=== PATIENT | male | born 1955 | race Caucasian/White ===

== ENCOUNTER 2020-04-30 16:56 | Inpatient (IN) | payer OTHER ==
[~2020-04-30] VITALS: Ht 180.3 cm; Wt 84.0 kg
[2020-04-30] MEDS ORDERED: CEFTRIAXONE PMX 2GM/50ML 50 ML ONE (17:51)
[2020-04-30] MEDS ORDERED: CEFTRIAXONE PMX 2GM/50ML 50 ML IVPB SCH ×2 (18:00→21:24)
--- NOTE | 2020-04-30 18:30 | NUR ---
UROLOGIST AT [facility] FLUSING 3 WAY CATHETER AND WHEN PULLING BACK OBTAINING CLOTS. WHEN SALINE CONNECTED TO BLADDER IRRIGATION TUBING, CATHETER NOT DRAINING/FLUSHING. PER UROLOGIST EXISITING CATHETER TO BE REMOVED WITH NEW [address] TO BE PLACED BY THIS RN AND CBI TO BE STARTED.
--- NOTE | 2020-04-30 18:30 | NUR ---
NOTE: 1829 NOTE BY KENISHA, NOT BUZZ ORTIZ
--- NOTE | 2020-04-30 18:42 | NUR ---
NOTE: CATHETER INSERTED BY LINH ORTIZ WITH BUZZ ORTIZ ASSISTING AND WITNESSING.
--- NOTE | 2020-04-30 19:00 | NUR ---
Break RN: assumed are of pt on behalf of primary RN for lunch break only. bladder irrigation running. +adolph bloody output, but no clots seen at this time. pt denies pain.
--- NOTE | 2020-04-30 19:10 | NUR ---
CBI CONTINUES TO BE INFUSING WITH DRAINAGE OF SALINE NOTED FROM BLADDER TO CATHETER. PT COMFORTABLE WITH NO BLADDER FULLNESS SENSATION OR DISTENTION.
--- NOTE | 2020-04-30 19:20 | NUR ---
Break RN: CBI infusing. urology at bedside for eval clean sheets applied
--- NOTE | 2020-04-30 19:37 | NUR ---
REPORT GIVEN TO JACK ORTIZ.
[2020-04-30 20:13] VITALS: BP 115/70
[2020-04-30] MEDS ORDERED: CEFTRIAXONE PMX 1GM/50ML 50 ML IV SCH (21:30)
[2020-04-30] MEDS ORDERED: BISACODYL 10 MG SUPP PR PRN (21:30)
[2020-04-30] MEDS ORDERED: ACETAMINOPHEN 325 MG TABLET PO PRN (21:30)
[2020-04-30] MEDS ORDERED: ONDANSETRON 2MG/ML, 2ML IVPush PRN (21:30)
[2020-04-30] MEDS ORDERED: POLYETHYLENE GLYCOL 17 GM PACKET PO PRN (21:30)
[2020-04-30 21:40] LABS: BASOPHILS % (AUTO) 1 % (0-1); EOSINOPHILS % (AUTO) 1 % (1-7); LYMPHOCYTES % (AUTO) 13 % (22-44); MEAN CORPUSCULAR HEMOGLOBIN 31.8 pg (27.5-34.5); MEAN CORPUSCULAR HGB CONC 34.2 g/dL (33.2-36.2); MONOCYTES % (AUTO) 9 % (2-9); NEUTROPHILS % (AUTO) 77 % (42-75); PLATELET COUNT 171 x10^3/uL (130-400); RED BLOOD COUNT 3.52 x10^6/uL (4.38-5.82)
[2020-04-30 21:44] LABS: MD NO
[2020-04-30 21:45] LABS: ALANINE AMINOTRANSFERASE 15 U/L (12-78); ALBUMIN 3.1 g/dL (3.4-5.0); ANION GAP 3 mmol/L (5-15); CHLORIDE 106 mmol/L (98-107); CREATININE 0.96 mg/dL (0.7-1.3)
[2020-04-30 21:47] LABS: ALKALINE PHOSPHATASE 69 U/L (45-117); TOTAL PROTEIN 5.6 g/dL (6.4-8.2)
[2020-04-30] MEDS: SODIUM CHLORIDE FLUSH 10ML SYR IVF SCH (22:24)
[2020-05-01 00:28] VITALS: BP 102/60
[2020-05-01] MEDS ORDERED: TAMS-11 PO (00:48)
[2020-05-01 08:00] VITALS: BP 117/68
[2020-05-01] MEDS: TAMSULOSIN 0.4 MG CAP.ER.24H PO SCH (09:20)
[2020-05-01] MEDS: SENNA/DOCUSATE TABLET PO SCH (09:20)
[2020-05-01] MEDS: SODIUM CHLORIDE FLUSH 10ML SYR IVF SCH ×2 (09:33→21:00)
[2020-05-01] MEDS: CEFTRIAXONE PMX 1GM/50ML 50 ML IV SCH (09:34)
[2020-05-01] MEDS ORDERED: ACETAMINOPHEN 325 MG TABLET PO PRN ×2 (10:00→18:00)
[2020-05-01 10:03] LABS: BASOPHILS % (AUTO) 1 % (0-1); EOSINOPHILS % (AUTO) 2 % (1-7); LYMPHOCYTES % (AUTO) 15 % (22-44); MEAN CORPUSCULAR HGB CONC 34.4 g/dL (33.2-36.2); MEAN PLATELET VOLUME 10.1 fL (7.4-10.4); MONOCYTES % (AUTO) 8 % (2-9); NEUTROPHILS % (AUTO) 75 % (42-75); PLATELET COUNT 163 x10^3/uL (130-400); RED BLOOD COUNT 3.41 x10^6/uL (4.38-5.82); RED CELL DISTRIBUTION WIDTH 13.4 % (9.4-14.8)
[2020-05-01] MEDS: SODIUM CHLORIDE 0.9% 1,000 ML IV SCH (10:13)
[2020-05-01 10:16] LABS: MD NO
[2020-05-01 14:26] VITALS: BP 113/68
[2020-05-01] MEDS ORDERED: FENTANYL PF 100 MCG/2ML ONE (17:14)
[2020-05-01] MEDS ORDERED: PROMETHAZINE 25 MG/ML, 1ML IVPush PRN (18:00)
[2020-05-01] MEDS ORDERED: OXYcodone 5 MG/5 ML ORAL.SOL UDC PO PRN (18:00)
[2020-05-01] MEDS ORDERED: LABETALOL 5MG/ML, 20ML IV PRN (18:00)
[2020-05-01] MEDS ORDERED: ALBUTEROL SULFATE 2.5 MG/3 ML NPPB PRN (18:00)
[2020-05-01] MEDS ORDERED: HYDROmorphone 1 MG/ML, 1ML INJ IVPush PRN (18:00)
[2020-05-01] MEDS ORDERED: MEPERIDINE/PF 25MG/0.5ML IVPush PRN (18:00)
[2020-05-01] MEDS ORDERED: FENTANYL PF 100 MCG/2ML IV PRN (18:00)
[2020-05-01] MEDS ORDERED: PROPOFOL 10 MG/ML, 20ML ONE (18:05)
[2020-05-01] MEDS ORDERED: DEXAMETHASONE 4 MG/ML, 1ML ONE (18:05)
[2020-05-01] MEDS ORDERED: ONDANSETRON 2MG/ML, 2ML ONE (18:05)
[2020-05-01] MEDS ORDERED: LIDOCAINE-MPF 2% ,5ML ONE (18:05)
[2020-05-01] MEDS ORDERED: OXYBUTYNIN CHLORIDE 5 MG TABLET PO PRN (20:00)
[2020-05-02] VITALS: BP 113/76
[2020-05-02] MEDS: SODIUM CHLORIDE 0.9% 1,000 ML IV SCH (02:40)
[2020-05-02 06:13] LABS: BASOPHILS % (AUTO) 1 % (0-1); EOSINOPHILS % (AUTO) 0 % (1-7); LYMPHOCYTES % (AUTO) 7 % (22-44); MEAN CORPUSCULAR HEMOGLOBIN 32.4 pg (27.5-34.5); MEAN CORPUSCULAR HGB CONC 34.4 g/dL (33.2-36.2); MEAN PLATELET VOLUME 10.5 fL (7.4-10.4); MONOCYTES % (AUTO) 5 % (2-9); NEUTROPHILS % (AUTO) 88 % (42-75); PLATELET COUNT 171 x10^3/uL (130-400); RED BLOOD COUNT 3.31 x10^6/uL (4.38-5.82); RED CELL DISTRIBUTION WIDTH 13.1 % (9.4-14.8)
[2020-05-02 06:17] LABS: MD NO
[2020-05-02 06:51] VITALS: BP_SYST 104; BP_SYST 111; BP_DIAS 65; BP_DIAS 67
[2020-05-02] MEDS: SENNA/DOCUSATE TABLET PO SCH (08:00)
[2020-05-02] MEDS: TAMSULOSIN 0.4 MG CAP.ER.24H PO SCH (08:00)
[2020-05-02] MEDS: SODIUM CHLORIDE FLUSH 10ML SYR IVF SCH (08:00)
[2020-05-02] MEDS: CEFTRIAXONE PMX 1GM/50ML 50 ML IV SCH (08:00)
[2020-05-02] MEDS ORDERED: OXYB5TAB10 PO (10:12)
== END 2020-05-02 11:46 | disposition home or self-care (01) | DRG 669 ==
LOC: ED 17:57 → EDIP 18:24 → 4NE 19:51 → 3WST 05-01 19:25 → DCLOUNGE 05-02 11:42
PROVIDERS: ADMIT Family Medicine; ATTEND Internal Medicine
PROC: 0T5B8ZZ Destruction of Bladder, Via Natural or Artificial Opening Endoscopic (ICD-10-PCS; principal; 2020-05-01 18:00)
DX: N13.9 Obstructive and reflux uropathy, unspecified (principal); N17.9 Acute kidney failure, unspecified; D49.4 Neoplasm of unspecified behavior of bladder; N39.0 Urinary tract infection, site not specified; Z85.51 Personal history of malignant neoplasm of bladder; R31.0 Gross hematuria; Z87.891 Personal history of nicotine dependence; Z90.49 Acquired absence of other specified parts of digestive tract; Z20.828 Contact with and (suspected) exposure to other viral communicable diseases
CPT/HCPCS: 36415; J3490; 80053; 85025; 87635; G0378; J0696; J1100; J2405; J2704; J3010; J7030